=== PATIENT | female | born 1965 | race Caucasian/White ===

== ENCOUNTER 2018-06-28 21:30 | Emergency (ER) | payer OTHER ==
[~2018-06-28] VITALS: Ht 157.5 cm; Wt 71.7 kg
[~2018-06-28 21:30] MED LIST: CIPRO500 MG PO; KETO10TA2 PO; URIN D.S. TABLE1 TAB PO; ZANTAC150 MG
[2018-06-28] MEDS ORDERED: ACID CONTROLLER20 MG PO (21:48)
[2018-06-29] MEDS ORDERED: VOLTAREN-XR100 MG PO (03:00)
[2018-06-29] MEDS ORDERED: NORFLEX100MG PO (03:00)
== END 2018-06-29 02:54 | disposition home or self-care (01) ==
LOC: ER 21:30
DX: S00.83XA Contusion of other part of head, initial encounter (principal); S30.0XXA Contusion of lower back and pelvis, initial encounter; S70.01XA Contusion of right hip, initial encounter; W18.09XA Striking against other object with subsequent fall, initial encounter; Y93.89 Activity, other specified; Y92.098 Other place in other non-institutional residence as the place of occurrence of the external cause; Y99.8 Other external cause status